=== PATIENT | male | born 1945 | race African-American/Black ===

== ENCOUNTER 2023-08-11 15:01 | Emergency (ER) | payer MEDICARE, MEDICAID ==
[~2023-08-11] VITALS: Ht 167.6 cm; Wt 63.6 kg
[~2023-08-11 15:01] MED LIST: [UNRECOGNIZED DRUG - REMARK]
[2023-08-11 15:09] VITALS: TEMP 97.6
[2023-08-11] MEDS: BACLOFEN 10 MG TABLET PO ONE (15:57)
[2023-08-11] MEDS: ACETAMINOPHEN 500 MG TABLET PO ONE (15:57)
[2023-08-11] MEDS: LIDOCAINE 5% TRANSDERMAL PATCH TD ONE (15:57)
[2023-08-11] MEDS ORDERED: LIDO700A15 TP (18:21)
[2023-08-11] MEDS ORDERED: BACL10TA PO (18:21)
[2023-08-11] MEDS ORDERED: ACET-3385 PO (18:22)
[2023-08-11 18:30] VITALS: BP 137/88; PULSE 83; RESP 16
== END 2023-08-11 19:55 | disposition home or self-care (01) ==
LOC: EMS 15:01
DX: M54.2 Cervicalgia (principal); I10 Essential (primary) hypertension; F17.210 Nicotine dependence, cigarettes, uncomplicated
CPT/HCPCS: 99283

== ENCOUNTER 2023-08-28 03:53 | Emergency (ER) | payer MEDICARE, MEDICAID ==
[~2023-08-28] VITALS: Ht 167.6 cm; Wt 54.5 kg
[~2023-08-28 03:53] MED LIST changes: +ACET-3385 PO; +BACL10TA PO; +LIDO700A15 TP; -[UNRECOGNIZED DRUG - REMARK]
[2023-08-28 04:12] VITALS: TEMP 97.9
[2023-08-28] MEDS: PredniSONE 20 MG TABLET PO ONE (04:17)
[2023-08-28 04:18] VITALS: PULSE 117; RESP 24; O2SAT 92
[2023-08-28] MEDS: IPRATROPIUM BROMIDE 0.5 MG/2.5 ML NEB SOLUTION NEB ONE (04:18)
[2023-08-28] MEDS: ALBUTEROL SULFATE 2.5 MG/0.5 ML NEB SOLUTION NEB ONE (04:18)
[2023-08-28 04:33] VITALS: PULSE 100; RESP 20; O2SAT 98
[2023-08-28 04:43] LABS: BASOPHILS % (AUTO) 1.4 % (0.0-2.0); EOSINOPHILS % (AUTO) 4.4 % (1.0-6.0); HEMOGLOBIN 13.4 g/dL (13.5-17.5); LYMPHOCYTES # (AUTO) 1.2 K/uL (1.0-4.8); LYMPHOCYTES % (AUTO) 30.5 % (22.0-44.0); MEAN CORPUSCULAR HEMOGLOBIN 28.3 pg (26.0-34.0); MEAN CORPUSCULAR HGB CONC 32.6 G/dL (31.0-37.0); MEAN CORPUSCULAR VOLUME 87 fL (80-100); MONOCYTES # (AUTO) 0.5 K/uL (0.1-1.0); MONOCYTES % (AUTO) 11.3 % (2.0-9.0); NEUTROPHILS # (AUTO) 2.1 K/uL (1.8-7.7); NEUTROPHILS % (AUTO) 52.4 % (40.0-70.0); PLATELET COUNT (AUTO) 308 K/uL (150-450); RED BLOOD CELL COUNT(AUTO) 4.72 MIL/uL (4.50-5.90); RED CELL DISTRIBUTION WIDTH 15.1 % (11.5-14.5); WHITE BLOOD COUNT (AUTO) 4.1 K/uL (4.5-11.0)
[2023-08-28 04:50] LABS: ANION GAP 10 mmol/L (8-16); CALCIUM, TOTAL 9.7 mg/dL (8.8-10.5); CARBON DIOXIDE 27 mmol/L (22-29); CHLORIDE 103 mmol/L (98-107); CREATININE 1.05 mg/dL (0.60-1.30); GLOMERULAR FILTR. RATE CALC > 60 mL/min (>60); GLUCOSE,RANDOM 77 mg/dL (70-110); POTASSIUM 3.6 mmol/L (3.5-5.1); SODIUM SERUM 140 mmol/L (136-145); UREA NITROGEN, BLOOD 14 mg/dL (7-18)
[2023-08-28 04:58] LABS: TROPONIN I-HIGH SENSITIVITY 11 ng/L (<76)
[2023-08-28 05:02] LABS: B-TYPE NATRIURETIC PEPTIDE 46 pg/mL (0-100)
[2023-08-28 05:15] LABS: ALANINE AMINOTRANSFERASE 20 U/L (12-78); ALBUMIN 3.6 g/dL (3.4-5.0); ALKALINE PHOSPHATASE 94 U/L (46-116); ASPARTATE AMINOTRANSFERASE 21 U/L (15-37); BILIRUBIN,TOTAL 0.7 mg/dL (0.1-1.0); CREATINE KINASE, TOTAL ONLY 138 U/L (39-308); TOTAL PROTEIN, SERUM 7.7 g/dL (6.4-8.2)
[2023-08-28] MEDS ORDERED: ALBU18HF12 IH (06:03)
[2023-08-28] MEDS ORDERED: PRED-554 PO (06:03)
[2023-08-28 06:11] VITALS: BP 169/112; PULSE 90; RESP 20
== END 2023-08-28 06:36 | disposition home or self-care (01) ==
LOC: EMS 03:53
DX: J45.909 Unspecified asthma, uncomplicated (principal); R06.02 Shortness of breath; R07.9 Chest pain, unspecified; I10 Essential (primary) hypertension; F17.210 Nicotine dependence, cigarettes, uncomplicated
CPT/HCPCS: 99285; 71045; 80053; 82550; 83880; 84484; 85025; 36415; 94640; 93005; J7512; J7613